=== PATIENT | male | born 1960 | race Caucasian/White ===

== ENCOUNTER 2020-06-04 07:51 | Day surgery (SDC) | payer BC ==
[2020-06-02 10:51] VITALS: BMI 25.0
[2020-06-04] MEDS ORDERED: Lidocaine 1% w/Epinephrine 1:100K 20 ML VIAL ONE (09:27)
[2020-06-04] MEDS ORDERED: Bupivacaine 0.25% HCL 30 ML VIAL ONE (09:27)
[2020-06-04] MEDS ORDERED: Fentanyl 100 MCG/2 ML VIAL ONE (09:57)
[2020-06-04] MEDS ORDERED: Midazolam HCl 2 mg/2 ml Vial ONE (09:57)
[2020-06-04] MEDS ORDERED: Ondansetron PF 4 MG/2 ML Vial ONE (10:24)
[2020-06-04] MEDS ORDERED: EPHEDRINE 25 MG/5 ML SYRINGE ONE (10:24)
[2020-06-04] MEDS ORDERED: diphenhydrAMINE 50 MG/ML VIAL ONE (10:24)
[2020-06-04] MEDS ORDERED: Ketorolac Tromethamine 30 MG/ML VIAL ONE (10:24)
[2020-06-04] MEDS ORDERED: Dexamethasone 20 MG/5 ML VIAL ONE (10:24)
[2020-06-04] MEDS ORDERED: PROPOFOL 200 MG/20 ML VIAL ONE (10:24)
--- NOTE | 2020-06-04 13:36 | OP ---
DATE OF PROCEDURE: 06/04/2020 PREOPERATIVE DIAGNOSIS: Right inguinal hernia. PROCEDURE PERFORMED: Right inguinal hernia repair with mesh. INDICATIONS: A 59-year-old male with a painful bulge in the right groin. FINDINGS: Right indirect inguinal hernia. DESCRIPTION OF PROCEDURE: After informed consent was obtained, the patient was taken to the operating room, given general endotracheal anesthesia, placed in supine position. Abdomen was prepped and draped in the usual fashion. Local anesthesia was infiltrated subcutaneously and deep. A transverse right inguinal incision was performed. Subcu divided sharply. The fascia of the external oblique was incised in direction of its fibers through the external ring. Spermatic cord was isolated with a [place] drain. Cremasteric fibers were . The hernia sac found. It was dissected from surrounding cord structures down to the internal ring and reduced. Reduction was maintained with a PHS hernia system. A posterior layer was placed in the preperitoneal space, anterior was laid out, sutured to the pubic tubercle medially, tucked under the external oblique fascia laterally. A notch was cut out for the spermatic cord. Hemostasis was assured. The external oblique fascia closed over the mesh and the cord with a running 3-0 Vicryl. Lisa was closed with interrupted 3-0 Vicryl and skin closed with a running subcuticular 4-0 Rapide. Steri-Strips applied. Sterile bandage applied. The patient tolerated the procedure well, transferred to Recovery in good condition. Sponge and needle count verified correct x2. Job ID: [id number]
== END 2020-06-04 13:05 | disposition home or self-care (01) ==
LOC: SDC 07:51
PROVIDERS: ATTEND Surgery
PROC: 0YU50JZ Supplement Right Inguinal Region with Synthetic Substitute, Open Approach (ICD-10-PCS; principal; 2020-06-04)
DX: K40.90 Unilateral inguinal hernia, without obstruction or gangrene, not specified as recurrent (principal); Z88.6 Allergy status to analgesic agent
CPT/HCPCS: J0690; J1100; J1200; J1885; J2250; J2405; J2704; J3010; S0020

== ENCOUNTER 2020-09-10 17:00 | Inpatient (IN) | payer BC ==
[2020-09-12 12:21] VITALS: BMI 25.6
[2020-09-15] MEDS ORDERED: Sodium Chloride 0.9% 100 ML ONE (06:28)
[2020-09-15] MEDS ORDERED: Tranexamic Acid 1,000 MG/10 ML VIAL ONE ×2 (06:28→11:11)
[2020-09-15] MEDS ORDERED: Vancomycin 1.5 GRAM/300 ML BAG ONE (06:28)
[2020-09-15] MEDS ORDERED: Bupivacaine PF 0.5% 30 ML VIAL ONE (06:33)
[2020-09-15] MEDS ORDERED: Acetaminophen 325 MG TAB PO PRN ×2 (07:13→07:17)
[2020-09-15] MEDS ORDERED: Fentanyl 100 MCG/2 ML VIAL ONE ×3 (07:13→11:42)
[2020-09-15] MEDS ORDERED: diphenhydrAMINE 50 MG/ML VIAL IVP PRN (07:15)
[2020-09-15] MEDS ORDERED: Bupivacaine 0.25% 10 ML VIAL EPIDURAL PRN (07:15)
[2020-09-15] MEDS ORDERED: Zolpidem Tartrate 5 MG TAB PO PRN ×2 (07:15→07:17)
[2020-09-15] MEDS ORDERED: traMADol HCl 50 MG TAB PO PRN ×2 (07:15)
[2020-09-15] MEDS ORDERED: Hydrocerin (Eucerin) Cream 120 gm Jar TOP PRN (07:15)
[2020-09-15] MEDS ORDERED: Naloxone HCl 0.4 mg/ml Vial IV PRN (07:15)
[2020-09-15] MEDS ORDERED: fentaNYL Citrate/PF 500 MCG, Bupivacaine 10 ML in Sodium Chloride 0.9% 80 ML EPIDURAL SCH (07:15)
[2020-09-15] MEDS ORDERED: Naloxone HCl 0.4 mg/ml Vial IVP PRN (07:15)
[2020-09-15] MEDS ORDERED: diphenhydrAMINE 50 MG/ML VIAL IM PRN (07:15)
[2020-09-15] MEDS ORDERED: Promethazine HCl 25 MG SUPP PR PRN (07:15)
[2020-09-15] MEDS ORDERED: HYDROcodone/Acetaminophen 5/325 mg Tablet PO PRN ×2 (07:15)
[2020-09-15] MEDS ORDERED: Promethazine HCl 25 MG/ML VIAL IM PRN ×3 (07:15→11:55)
[2020-09-15] MEDS ORDERED: Ondansetron PF 4 MG/2 ML Vial IVP PRN ×2 (07:15→07:17)
[2020-09-15] MEDS ORDERED: HYDROcodone/Acetaminophen 10/325 mg Tablet PO PRN ×2 (07:17)
[2020-09-15] MEDS ORDERED: diphenhydrAMINE 25 MG CAP PO PRN (07:17)
[2020-09-15] MEDS ORDERED: Ropivacaine 0.2% HCl/PF 20 ML ONE ×2 (07:18→09:08)
[2020-09-15] MEDS ORDERED: Tranexamic Acid 1,000 MG in Sodium Chloride 0.9% 100 ML IVPB SCH (07:30)
[2020-09-15] MEDS ORDERED: Ketorolac Tromethamine 30 MG/ML VIAL ONE (10:16)
[2020-09-15] MEDS ORDERED: Lidocaine 1.5% w/Epi 1:200K 30 ML VIAL (Epid Use) ONE (10:16)
[2020-09-15] MEDS ORDERED: Ondansetron PF 4 MG/2 ML Vial ONE (10:16)
[2020-09-15] MEDS ORDERED: PROPOFOL 200 MG/20 ML VIAL ONE (10:16)
[2020-09-15] MEDS ORDERED: ePHEDrine 50 MG/ML VIAL ONE (10:16)
[2020-09-15] MEDS ORDERED: Rocuronium Bromide 10 MG/ML (10ML VIAL) ONE (10:16)
[2020-09-15] MEDS ORDERED: Promethazine HCl 25 MG/ML VIAL SLOW IVP PRN (11:55)
[2020-09-15] MEDS ORDERED: Ondansetron HCl/PF 4 MG/2 ML Vial IVP PRN (11:55)
--- NOTE | 2020-09-15 12:51 | OP ---
DATE OF PROCEDURE: 09/15/2020 HALL DIRECTOR: Prieto Royal PA-C. The personnel security assistant surgeon include the approaches to both knees, placement of bilateral total knee implants and closure of all knee wounds. PREOPERATIVE DIAGNOSIS: Bilateral knee severe osteoarthrosis. POSTOPERATIVE DIAGNOSIS: Bilateral knee severe osteoarthrosis. PROCEDURE PERFORMED: Bilateral total knee replacement. ANESTHESIA: The patient had a general anesthetic as well as an epidural. COMPLICATIONS: No complications. ESTIMATED BLOOD LOSS: Minimal. IMPLANTS: Both knees; to the right knee, Tank triathlon total knee system, the femur was a size right 6 cruciate retaining femur. We used a size 6 primary tibial base plate. We used a 6 x 11 mm CS X3 tibial poly and we used a 29 x 9 asymmetric X3 patella. On the left knee, the femur was a size 6 left cruciate retaining femur. We used a size 6 primary tibial base plate. We used a 6 x 11 mm CS X3 tibial poly and we used a 29 x 9 asymmetric X3 patella. DISPOSITION: Did go to recovery room in stable condition. INDICATIONS: This is a healthy 59-year-old male, who presents with severe bilateral knee osteoarthrosis. At this time, he was to have both knees replaced at the same time. PROCEDURE IN DETAIL: After all appropriate consent forms were explained and signed, the patient was taken back to the operating room and at this time was given general anesthetic. Once the level of anesthesia was appropriate, a well-padded tourniquet was placed on the right leg, and the leg was then prepped and draped in standard surgical fashion. The limb was exsanguinated and tourniquet taken up to 300 mmHg. Midline incision was made with a 10 blade down through the skin and subcutaneous tissue. Bovie electrocautery was used to coagulate any brisk venous bleeding. A new blade was used to make a medial parapatellar arthrotomy. Small subperiosteal release was performed medially and excess fat pad was removed. The knee was flexed up to gain access to the femur. The femur was navigated and distal femoral resection was made. Epicondylar access was used to align our sizing jig and this was pinned in place. We sized our femur to be a size right 6 cruciate retaining femur. 4:1 cutting block was applied and pinned. Anterior and posterior chamfer cuts were then made. We navigated out our proximal tibia and made our proximal tibial resection. Spreaders were used to remove any posterior osteophytes off the back of the femur as well as remaining meniscal tissue. A long alignment mauricio was then used to achieve correct rotation of our tibial baseplate and we used a size 6 primary tibial base plate was chosen. This was pinned in place. We trialed the polyethylene and we used a 6 x 11 mm CS X3 tibial poly gave us full extension and good stability throughout range of motion. Two towel clips and a saw were used to cut our patella. Three lug nuts were drilled and we used a 29 x 9 asymmetric X3 patella was trialed which sat nicely in the trochlear groove. We then drilled our femur and punched our tibia. All components were removed. The knee was thoroughly irrigated and dried. Cement was mixed into the cement gun on the back table. Components were then placed. The knee was held out in full extension until the cement had dried. All excess bone cement was removed. Multiple #2 Vicryl stitches as well as a Quill were used to close our extensor mechanism. 0 Quill followed by a running Monoderm was then used to close the skin. Surgicel glue was then used on the skin. Once this had dried, soft tissue dressing was applied to the limb, tourniquet was let down, and the toes pinked up nicely. All counts were correct at the end of the case. The patient did receive preoperative IV antibiotics. After the right knee was closed and a dressing had been applied, we went ahead and broke down the entire surgical field and went ahead and prepped and draped the left lower extremity in standard fashion with all new instrumentation in whole new surgical field. The limb was exsanguinated and tourniquet taken up to 300 mmHg. Midline incision was made with a 10 blade down through the skin and subcutaneous tissue. Bovie electrocautery was used to coagulate any brisk venous bleeding. A new blade was used to make a medial parapatellar arthrotomy. Small subperiosteal release was performed medially and excess fat pad was removed. The knee was flexed up to gain access to the femur. The femur was navigated and distal femoral resection was made. Epicondylar access was used to align our sizing jig and this was pinned in place. We sized our femur to be a size 6 left cruciate retaining femur. 4:1 cutting block was applied and pinned. Anterior and posterior chamfer cuts were then made. We navigated out our proximal tibia and made our proximal tibial resection. Spreaders were used to remove any posterior osteophytes off the back of the femur as well as remaining meniscal tissue. A long alignment mauricio was then used to achieve correct rotation of our tibial baseplate and we used a size 6 primary tibial base plate was chosen. This was pinned in place. We trialed the polyethylene and we used a 6 x 11 mm CS X3 tibial poly gave us full extension and good stability throughout range of motion. Two towel clips and a saw were used to cut our patella. Three lug nuts were drilled and we used a 29 x 9 asymmetric X3 patella was trialed which sat nicely in the trochlear groove. We then drilled our femur and punched our tibia. All components were removed. The knee was thoroughly irrigated and dried. Cement was mixed into the cement gun on the back table. Components were then placed. The knee was held out in full extension until the cement had dried. All excess bone cement was removed. Multiple #2 Vicryl stitches as well as a Quill were used to close our extensor mechanism. 0 Quill followed by a running Monoderm was then used to close the skin. Surgicel glue was then used on the skin. Once this had dried, soft tissue dressing was applied to the limb, tourniquet was let down, and the toes pinked up nicely. The patient was then awakened and taken to the recovery room in stable condition. All counts were correct at the end of the case. The patient did receive preoperative IV antibiotics. Job ID: [id number] [facility]
[2020-09-15] MEDS: Ferrous Gluconate 324 MG TAB PO SCH ×2 (13:43→20:56)
[2020-09-15] MEDS: Dextrose 5 %-0.45 % NaCl 1,000 ML IV SCH ×2 (13:43→18:35)
[2020-09-15] MEDS: Aspirin 81 mg Enteric Coated Tablet PO SCH ×2 (13:43→20:56)
[2020-09-15] MEDS: Senokot S 8.6-50 MG TAB PO SCH ×2 (13:43→20:56)
[2020-09-15] MEDS: Multivitamin W/ Minerals 1 TAB PO SCH (13:43)
[2020-09-15] MEDS: CEFAZOLIN 2 GM in Premix Bag 1 BAG IVPB SCH ×2 (15:16→21:00)
[2020-09-15] MEDS: diphenhydrAMINE 25 MG CAP PO PRN (18:21)
[2020-09-15] MEDS ORDERED: Vancomycin 1.5 GRAM/300 ML BAG 1.5 GM in Premix Bag 1 BAG IVPB SCH (19:00)
[2020-09-16] MEDS: diphenhydrAMINE 25 MG CAP PO PRN (01:11)
[2020-09-16] MEDS: Dextrose 5 %-0.45 % NaCl 1,000 ML IV SCH ×3 (02:47→22:41)
[2020-09-16 05:53] LABS: Hemoglobin 12.9 g/dL (14.0-18.0); Mean Corpuscular HGB CONC 35.2 g/dL (32.0-36.0); Mean Corpuscular Hemoglobin 35.2 pg (27.0-31.0); Mean Platelet Volume 7.2 fL (7.4-10.4); Platelet Count 180 thou/uL (130-400); RBC Distribution Width 11.4 % (11.5-14.5); Red Blood Cell (RBC) Count 3.66 mill/uL (4.70-6.10); White Blood Cell (WBC) Count 10.4 thou/uL (4.8-10.8)
[2020-09-16] MEDS: Senokot S 8.6-50 MG TAB PO SCH ×2 (09:10→20:03)
[2020-09-16] MEDS: Ferrous Gluconate 324 MG TAB PO SCH ×2 (09:10→20:03)
[2020-09-16] MEDS: Aspirin 81 mg Enteric Coated Tablet PO SCH ×2 (09:10→20:03)
[2020-09-16] MEDS: Multivitamin W/ Minerals 1 TAB PO SCH (09:10)
[2020-09-16] MEDS: Bupivacaine 10 ML in Sodium Chloride 0.9% 90 ML IJ SCH (11:02)
--- NOTE | 2020-09-16 12:13 | PRG ---
DATE OF SERVICE: 09/16/2020 SUBJECTIVE: Ryan is a 59-year-old male, who is postop day 1 from bilateral total knee arthroplasty. He is doing very well. He is comfortable. He ambulated 24 feet yesterday evening and he ambulated greater than 100 feet today. His epidural is still in place and he has very little pain currently. OBJECTIVE: VITAL SIGNS: Temperature 98.3, pulse 72, respiratory rate 12 and nonlabored, blood pressure is 126/64. NEUROLOGIC: He is alert and oriented to person, place, time, situation, responsive, appropriate and conversive with examiner. The incision is clean bilaterally. No erythema. No strikethrough. He is neurovascularly intact in both lower extremities. No malrotation or shortening. LABORATORY DATA: Hemoglobin and hematocrit 12.9 and 36.6. IMPRESSION: A 59-year-old white male, postop day one, bilateral total knee arthroplasties, doing very well. PLAN: Continue to observe and maintain pain control. Watch and observe for hemorrhage. Probable discharge to home tomorrow after removal of epidural and urinary catheters. Job ID: [id number]
[2020-09-16] MEDS: Ketorolac Tromethamine 30 MG/ML VIAL IVP PRN (16:23)
[2020-09-17] MEDS: Bupivacaine 10 ML in Sodium Chloride 0.9% 90 ML IJ SCH (04:04)
[2020-09-17 05:13] LABS: Hemoglobin 12.7 g/dL (14.0-18.0); Mean Corpuscular HGB CONC 34.1 g/dL (32.0-36.0); Mean Corpuscular Hemoglobin 33.9 pg (27.0-31.0); Mean Corpuscular Volume 99.7 fL (78.0-98.0); Mean Platelet Volume 7.3 fL (7.4-10.4); Platelet Count 169 thou/uL (130-400); RBC Distribution Width 11.5 % (11.5-14.5); Red Blood Cell (RBC) Count 3.75 mill/uL (4.70-6.10)
[2020-09-17] MEDS ORDERED: Fentanyl 100 MCG/2 ML VIAL SLOW IVP PRN (08:33)
[2020-09-17] MEDS ORDERED: HYDROcodone/Acetaminophen 10/325 mg Tablet PO PRN (08:35)
[2020-09-17] MEDS: HYDROcodone/Acetaminophen 10/325 mg Tablet PO PRN ×4 (09:06→22:02)
[2020-09-17] MEDS: Ketorolac Tromethamine 30 MG/ML VIAL IVP PRN (09:09)
[2020-09-17] MEDS: Multivitamin W/ Minerals 1 TAB PO SCH (09:13)
[2020-09-17] MEDS: Ferrous Gluconate 324 MG TAB PO SCH ×2 (09:13→21:13)
[2020-09-17] MEDS: Aspirin 81 mg Enteric Coated Tablet PO SCH ×2 (09:13→21:13)
[2020-09-17] MEDS: Senokot S 8.6-50 MG TAB PO SCH ×2 (09:15→21:14)
[2020-09-17] MEDS: Dextrose 5 %-0.45 % NaCl 1,000 ML IV SCH ×2 (09:55→19:57)
[2020-09-18] MEDS: HYDROcodone/Acetaminophen 10/325 mg Tablet PO PRN ×2 (02:40→06:52)
[2020-09-18 05:20] LABS: Mean Corpuscular HGB CONC 34.1 g/dL (32.0-36.0); Mean Corpuscular Hemoglobin 33.9 pg (27.0-31.0); Mean Corpuscular Volume 99.3 fL (78.0-98.0); Mean Platelet Volume 8.1 fL (7.4-10.4); Platelet Count 173 thou/uL (130-400); RBC Distribution Width 11.4 % (11.5-14.5); Red Blood Cell (RBC) Count 3.24 mill/uL (4.70-6.10)
[2020-09-18] MEDS: Dextrose 5 %-0.45 % NaCl 1,000 ML IV SCH (05:34)
[2020-09-18] MEDS ORDERED: Ondansetron ODT 4 MG TAB PO PRN (08:52)
[2020-09-18] MEDS: Ferrous Gluconate 324 MG TAB PO SCH (09:58)
[2020-09-18] MEDS: Multivitamin W/ Minerals 1 TAB PO SCH (09:59)
[2020-09-18] MEDS: Aspirin 81 mg Enteric Coated Tablet PO SCH (09:59)
[2020-09-18] MEDS: Senokot S 8.6-50 MG TAB PO SCH (10:59)
[2020-09-18 12:10] VITALS: BP 127/77; TEMP 97.9
== END 2020-09-18 14:26 | disposition home or self-care (01) | DRG 462 ==
LOC: SJJU 09-15 05:34 → EDSTATUS 09-15 17:00
PROVIDERS: ADMIT Orthopaedic Surgery; ATTEND Orthopaedic Surgery
PROC: 0SRD0J9 Replacement of Left Knee Joint with Synthetic Substitute, Cemented, Open Approach (ICD-10-PCS; principal; 2020-09-15)
PROC: 0SRC0J9 Replacement of Right Knee Joint with Synthetic Substitute, Cemented, Open Approach (ICD-10-PCS; 2020-09-15)
DX: M17.0 Bilateral primary osteoarthritis of knee (principal)
CPT/HCPCS: 36415; 85027; C1713; C1776; J0690; J1885; J2001; J2405; J2704; J2795; J3010; J3370; J3490; Q0162; Q0163; S0020